=== PATIENT | male | born 1995 | race Caucasian/White ===

== ENCOUNTER 2021-04-05 16:14 | Emergency (ER) | payer OTHER ==
[~2021-04-05] VITALS: Ht 177.8 cm; Wt 81.6 kg
[2021-04-05 16:19] VITALS: BP_SYST 105
[2021-04-05] MEDS ORDERED: KETOROLAC TROMETHAMINE 60 MG/2 ML VIAL IM ONE (16:30)
[2021-04-05] MEDS ORDERED: METH-634 PO (17:01)
[2021-04-05] MEDS ORDERED: IBUP-1969 PO (17:01)
[2021-04-05 17:24] VITALS: BP_SYST 105
== END 2021-04-05 17:22 | disposition home or self-care (01) ==
LOC: SED 16:14
DX: M54.42 Lumbago with sciatica, left side (principal); Z79.899 Other long term (current) drug therapy
CPT/HCPCS: 72100; 96372; 99283; J1885